=== PATIENT | male | born 1995 | race Caucasian/White ===

== ENCOUNTER 2021-11-02 18:37 | Emergency (ER) | payer OTHER ==
[2021-11-02 18:55] VITALS: BP 128/83; PULSE 66; RESP 18; TEMP 98.3
[2021-11-02] MEDS ORDERED: OFLOXACIN 0.3% OPHTH DROPS 5 ML BOTTLE BOTH EARS STA (20:26)
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
== END 2021-11-02 21:07 | disposition home or self-care (01) ==
LOC: EC 18:37
DX: H91.93 Unspecified hearing loss, bilateral (principal); F17.290 Nicotine dependence, other tobacco product, uncomplicated
CPT/HCPCS: 99283

== ENCOUNTER 2022-01-29 09:41 | Emergency (ER) | payer OTHER ==
[2022-01-29 09:52] VITALS: BP 122/68; PULSE 58; TEMP 98.2
[2022-01-29 10:02] VITALS: RESP 18
--- NOTE | 2022-01-29 10:30 | ED ---
General Adult HPI - General Chief complaint: Recheck/Abnormal Lab/Rx Stated complaint: Covid test Time Seen by Provider: 01/29/22 09:48 Source: patient, RN notes reviewed Mode of arrival: ambulatory Limitations: no limitations - History of Present Illness Initial comments: 26-year-old male presents emergency Department for covid 19 testing. Patient was sent down from labor and delivery for testing covid 19 as his significant other test positive. He is asymptomatic. Denies cough fever chills nausea vomiting diarrhea constipation no other complaints. - Related Data Previous Rx's Medication Instructions Recorded Ofloxacin 0.3% Otic Soln [Floxin 10 drops BOTH EARS BID #10 ml 11/02/21 0.3% Otic Soln] Allergies Allergy/AdvReac Type Severity Reaction Status Date / Time No Known Allergies Allergy Verified 01/29/22 09:52 Review of Systems ROS Statement: Those systems with pertinent positive or pertinent negative responses have been documented in the HPI. ROS Other: All systems not noted in ROS Statement are negative. Past Medical History Past Medical History: No Reported History History of Any Multi-Drug Resistant Organisms: None Reported Past Surgical History: No Surgical Hx Reported Past Psychological History: No Psychological Hx Reported Smoking Status: Vaper Past Alcohol Use History: None Reported Past Drug Use History: None Reported General Exam Limitations: no limitations Course Vital Signs 01/29/22 01/29/22 09:49 10:01 Temperature 98.2 F Pulse Rate 58 L Respiratory 20 18 Rate Blood Pressure 122/68 O2 Sat by Pulse 99 Oximetry Medical Decision Making - Lab Data Lab Results 01/29/22 Range/Units 09:59 Coronavirus (PCR) Not Detected (Not Detectd) Disposition Clinical Impression: Encounter for screening laboratory testing for COVID-19 virus Disposition: HOME SELF-CARE Condition: Stable Additional Instructions: Please return to the Emergency Department if symptoms worsen or any other concerns. Is patient prescribed a controlled substance at d/c from ED?: No Referrals: April Cline MD [Primary Care Provider] - 1-2 days Time of Disposition: 10:30
== END 2022-01-29 10:35 | disposition home or self-care (01) ==
LOC: EC 09:41
DX: Z20.822 Contact with and (suspected) exposure to COVID-19 (principal); F17.209 Nicotine dependence, unspecified, with unspecified nicotine-induced disorders
CPT/HCPCS: 87635